=== PATIENT | male | born 1930 | race Caucasian/White ===

== ENCOUNTER 2017-01-05 02:20 | Inpatient (IN) ==
--- NOTE | 2016-12-30 10:42 | EKG Report ---
Test Performed on : 12/30/2016 10:32:29 AM Test Reason : surgery Blood Pressure : / mmHG Vent. Rate : 054 BPM Atrial Rate : 054 BPM P-R Int : 166 ms QRS Dur : 078 ms QT Int : 422 ms P-R-T Axes : 021 006 046 degrees QTc Int : 400 ms Sinus bradycardia. Otherwise normal ECG No previous ECGs available Confirmed by Debby Oates MD ([id number]) on 12/30/2016 1:08:07 PM
[2016-12-30 10:49] LABS: MANUAL DIFF NEEDED? NO; URINE MICRO REVIEW NEEDED? NO; URINE SOURCE CLEAN CATCH
[2016-12-30 10:52] LABS: BILIRUBIN URINE NEGATIVE (NEGATIVE); BLOOD URINE NEGATIVE (NEGATIVE); COLOR YELLOW; GLUCOSE URINE NEGATIVE (NEGATIVE); LEUKOCYTES URINE LARGE (NEGATIVE); NITRITE URINE NEGATIVE (NEGATIVE); PROTEIN URINE TRACE mg/dL (NEGATIVE); SP GRAVITY URINE 1.017; TURBIDITY URINE CLEAR (CLEAR); UR EPITHELIAL CELLS <10 /HPF (<10); URINE BACTERIA 1+ /HPF; URINE RBC <10 /HPF (<10); URINE WBC TNTC /HPF (<10); UROBILINOGEN URINE NORMAL (NORMAL)
[2016-12-30 10:54] LABS: BASO% 0.4 % (0.0-0.8); EOS# 0.19 X1000 (0.0-0.7); EOS% 3.6 % (0.0-10.0); HEMATOCRIT 41.1 % (42.0-52.0); HEMOGLOBIN 13.3 g/dL (14.0-18.0); LYMPH# 1.55 X1000 (1.2-3.4); LYMPH% 29.6 % (20.5-51.1); MCH 31.4 PG (27-31); MCHC 32.4 g/dL (33-37); MCV 96.9 FL (81-99); MONO# 0.45 X1000 (0.11-0.59); MONO% 8.6 % (1.7-9.3); MPV 10.2 FL (7.4-10.4); NEUT% 57.8 % (42.2-75.2); PLT 187 X1000 (130-400); RBC 4.24 XMIL (4.7-6.1)
[2016-12-30 11:03] LABS: INR 1.02; PROTIME 10.7 Seconds (9.2-11.7); PTT 26.3 Seconds (22.0-36.0)
[2016-12-30 11:43] LABS: AGAP 10; BUN 11 mg/dL (8-22); CALCIUM 9.4 mg/dL (8.8-10.2); CHLORIDE 105 mmol/L (98-107); COSMO 282; POTASSIUM 4.4 mmol/L (3.5-5.1); SODIUM 142 mmol/L (136-145); TCO2 27 mmol/L (25-35)
[2017-01-05] MEDS ORDERED: FENTANYL ONE (06:47)
[2017-01-05] MEDS ORDERED: DIPRIVAN 1% ONE (06:48)
[2017-01-05] MEDS ORDERED: DECADRON ONE (06:49)
[2017-01-05] MEDS ORDERED: ROBINUL ONE (06:49)
[2017-01-05] MEDS ORDERED: XYLOCAINE-MPF 2% ONE (06:49)
[2017-01-05] MEDS ORDERED: LR 1,000 ML ONE (07:05)
[2017-01-05] MEDS ORDERED: KEFZOL 2 GM/D5W 2 GM/50 ML IVPB ONE (07:08)
[2017-01-05] MEDS ORDERED: PEPCID ONE (07:08)
[2017-01-05] MEDS ORDERED: CELEBREX ONE (07:08)
[2017-01-05] MEDS ORDERED: REGLAN ONE (07:08)
[2017-01-05] MEDS ORDERED: LYRICA ONE (07:08)
[2017-01-05] MEDS ORDERED: COLACE ONE (07:08)
[2017-01-05] MEDS ORDERED: SENSORCAINE 0.25%/EPI 1:200,000 ONE (07:48)
[2017-01-05] MEDS ORDERED: DURAMORPH ONE (07:48)
[2017-01-05] MEDS ORDERED: VANCOMYCIN ONE (07:48)
[2017-01-05] MEDS ORDERED: TORADOL ONE (07:48)
[2017-01-05] MEDS ORDERED: CYKLOKAPRON 1,000 MG/NS 0 MG/0 ML IVPB ONE (07:49)
[2017-01-05] MEDS ORDERED: SODIUM CHLORIDE 0.9% ONE (07:49)
[2017-01-05] MEDS ORDERED: EXPAREL 1.3% ONE (07:50)
[2017-01-05] MEDS ORDERED: NEOSPORIN G.U. IRRIGANT ONE (07:50)
[2017-01-05] MEDS ORDERED: CYKLOKAPRON 1,000 MG/NS 1,000 MG/100 ML IVPB ONE (07:50)
[2017-01-05] MEDS ORDERED: VERSED ONE (08:39)
[2017-01-05 09:18] LABS: URINE MICRO REVIEW NEEDED? NO; URINE SOURCE CATH
[2017-01-05 09:23] LABS: BILIRUBIN URINE NEGATIVE (NEGATIVE); BLOOD URINE NEGATIVE (NEGATIVE); COLOR YELLOW; GLUCOSE URINE NEGATIVE (NEGATIVE); LEUKOCYTES URINE LARGE (NEGATIVE); NITRITE URINE NEGATIVE (NEGATIVE); PROTEIN URINE TRACE mg/dL (NEGATIVE); SP GRAVITY URINE 1.019; TURBIDITY URINE CLEAR (CLEAR); UROBILINOGEN URINE NORMAL (NORMAL)
[2017-01-05 09:24] LABS: UR EPITHELIAL CELLS <10 /HPF (<10); URINE BACTERIA NEGATIVE /HPF; URINE RBC <10 /HPF (<10)
[2017-01-05] MEDS ORDERED: NS 1,000 ML ONE (11:21)
[2017-01-05] MEDS ORDERED: ZOFRAN PO PRN (11:45)
[2017-01-05] MEDS ORDERED: MILK OF MAGNESIA PO PRN (11:45)
[2017-01-05] MEDS ORDERED: MORPHINE IV PRN (11:45)
[2017-01-05] MEDS: NS 1,000 ML IV SCH ×2 (12:14→22:12)
--- NOTE | 2017-01-05 12:44 | Diag Imaging Result Doc PS360 ---
EXAM: KNEE 1-2 VIEWS-RIGHT HISTORY: post op tka TECHNIQUE: Two views COMPARISON: None. FINDINGS: The patient has undergone recent orthopedic replacement of the knee. There are anterior skin kip and there is a superior surgical drain. No fracture. No dislocation. IMPRESSION: Good alignment to the femoral and tibial components following orthopedic replacement of the right knee. Electronically signed by Devan House 01/05/2017 12:42 PM
[2017-01-05] MEDS: KEFZOL 2 GM/D5W 2 GM/50 ML IVPB IV SCH (16:13)
[2017-01-05] MEDS: CENTRUM SILVER PO SCH (16:14)
[2017-01-05] MEDS: TYLENOL PO SCH ×2 (16:14→22:12)
[2017-01-05] MEDS: PROSCAR PO SCH (16:15)
--- NOTE | 2017-01-05 18:08 | OPERATIVE NOTE ---
PROCEDURE DATE: 01/05/2017 PREOPERATIVE DIAGNOSIS: Degenerative arthritis, right knee. POSTOPERATIVE DIAGNOSIS: Degenerative arthritis, right knee. PROCEDURE: Right total knee arthroplasty with DePuy Attune size 8 posterior stabilized femur, a size 8 tibial tray, 8 mm rotating platform tibial insert, and a 38 mm medialized anatomic patella. SURGEON: Wiliam Begum MD. INFORMATION SYSTEMS SECURITY ANALYST: GODFREY Hernandez 2ND BARK SCALER: Akhil Ahn RN. ANESTHESIA: Spinal. IV FLUIDS: 1100 mL lactated Ringer's. ESTIMATED BLOOD LOSS: 20 mL. TOURNIQUET TIME: 95 minutes at 350 mmHg. COMPLICATIONS: None. INDICATION: The patient is a pleasant 86-year-old male with a chronic history of worsening pain and discomfort in his right knee. Continued pain and discomfort despite appropriate nonoperative treatment. X-rays revealed degenerative arthritis. Recommendation to proceed with right total knee arthroplasty was offered. Risks and benefits of surgery were explained, including the risks of anesthesia, , bleeding, infection, failure to relieve pain, postop stiffness, nerve injury, blood clots and other imponderables. All questions were answered. The patient and family wished to proceed with surgery. DETAILS OF OPERATION: The patient was taken to the operating room and placed supine on the operating table. Once adequate anesthesia was obtained, the patient's right lower extremity was subsequently prepped and draped in usual sterile fashion. Esmarch was used to exsanguinate the right lower extremity. The tourniquet was inflated to 350 mmHg. A standard anterior incision was made with a skin knife. Medial and skin envelopes were developed. A standard medial parapatellar arthrotomy was then performed. Patella fat pad was excised. Retractors were then placed. Approximately 1 cm anterior to the PCL insertion, a starting reamer was passed. Intramedullary guide with a distal femoral cutting block was pinned into position. A distal femoral cut was then performed. A sizing block was made to size 8. Corresponding pins were placed. A size 8 cutting block was then placed. Anterior, posterior, and chamfer cuts were then made. Retractors were then placed in position. Attention then turned to the proximal tibia. The extramedullary guide was then used and the tibial cutting block was then pinned in position. Had good alignment confirmed with the alignment ben. The proximal tibia was then resected. A curved osteotome was used to remove the posterior osteophytes. Medial and lateral meniscus was excised. Spacer block was placed and had good soft tissue balancing with both flexion and extension. After this had been performed, a size 8 tibial tray appeared to be the correct size. Corresponding pins were placed and this was followed by a central reamer and a fin punch. A box cutting guide was then placed and distal femur box cut was performed. A trial tibial insert was then placed and 2 lug holes were drilled. Trial tibial insert was then placed and had good soft tissue balancing. Attention was then turned to the patella where it was everted and resected in standard fashion. 38 appeared to be correct size. Corresponding holes were drilled. Patellar insert was then placed and had good patellofemoral tracking. The components were then removed. Copious irrigation was then performed with antibiotic pulsatile lavage while vancomycin was mixed with cement on back table. Sequential cementing was then performed, first with the tibial tray and excess cement was removed with a [place]. This was followed by the femoral component and a trial tibial insert was then placed and axial loading and full extension was maintained while cement cured. Patella cemented in standard fashion. Patella clamp was placed. While the cement was curing, Exparel was placed in deep soft tissue, as well subcutaneous tissue. After cement had cured, a trial tibial insert 8 mm appeared to be correct tibial insert. This was then removed. Exparel was placed in deep posterior capsule. The wound was copiously irrigated with antibiotic pulsatile lavage. An 8 mm rotating platform tibial insert was then placed. Had good soft tissue balance and good range of motion. Good patellofemoral tracking. A 1/8 Hemovac drain was placed and was not sewn in. The wound was copiously irrigated once again with antibiotic pulsatile lavage. #1 Vicryl was then used to repair the arthrotomy, followed by 2-0 Vicryl to repair subcutaneous tissue and skin kip. Adaptic, sterile 4 x 4's, Webril, cryo unit, Domingo wrap applied to the right lower extremity. Patient tolerated the procedure well. No complications. He was transferred to the recovery room in stable condition. cc: Wiliam Begum MD
[2017-01-05] MEDS: COLACE PO SCH (22:12)
[2017-01-06] MEDS: KEFZOL 2 GM/D5W 2 GM/50 ML IVPB IV SCH (00:52)
[2017-01-06 06:04] LABS: CALCIUM 7.6 mg/dL (8.8-10.2); POTASSIUM 4.7 mmol/L (3.5-5.1)
[2017-01-06] MEDS: NS 1,000 ML IV SCH ×2 (06:22→16:28)
[2017-01-06] MEDS: XARELTO PO SCH (06:24)
[2017-01-06] MEDS: TYLENOL PO SCH ×4 (06:24→22:54)
[2017-01-06 08:40] LABS: HEMATOCRIT 30.9 % (42.0-52.0); HEMOGLOBIN 9.8 g/dL (14.0-18.0)
[2017-01-06] MEDS: PEPCID PO SCH (09:52)
[2017-01-06] MEDS: PERIDEX MT SCH ×2 (09:52→21:08)
[2017-01-06] MEDS: CENTRUM SILVER PO SCH (09:52)
[2017-01-06] MEDS: COLACE PO SCH ×2 (09:54→21:08)
[2017-01-06] MEDS: PROSCAR PO SCH (09:55)
--- NOTE | 2017-01-06 11:06 | PROGRESS NOTE ---
DATE: 01/06/2017 SUBJECTIVE: Patient is a pleasant, 86-year-old male who is 1 day status post right total knee arthroplasty. He is currently resting comfortably and has no complaints this morning. OBJECTIVE: Physical Examination: On physical exam, the patient's right lower extremity dressing is intact. Calf is soft. He is neurovascular intact distally. He has active dorsiflexion and plantarflexion. Laboratory Data: His hemoglobin and hematocrit are pending. IMPRESSION: Postoperative day #1, status post right total knee arthroplasty. PLANS: Change his dressing and discontinue his drain and Armijo. We will also Hep-Lock his IV. We will mobilize with physical therapy. assurance services manager health care have been consulted for discharge planning for inpatient rehabilitation. cc: Wiliam Begum MD
[2017-01-07] MEDS: TYLENOL PO SCH ×4 (02:52→17:35)
[2017-01-07] MEDS: NS 1,000 ML IV SCH ×3 (02:52→19:09)
[2017-01-07] MEDS: XARELTO PO SCH (05:17)
[2017-01-07 05:31] LABS: HEMATOCRIT 28.1 % (42.0-52.0); HEMOGLOBIN 9.1 g/dL (14.0-18.0)
[2017-01-07] MEDS: OXY IR PO PRN ×3 (05:55→20:49)
--- NOTE | 2017-01-07 08:16 | PROGRESS NOTE ---
DATE: 01/07/2017 SUBJECTIVE: The patient is an 86-year-old male who is 2 days status post right total knee arthroplasty. The patient rested well through the night and has no complaints this morning. OBJECTIVE: On physical exam, patient's right lower extremity wound looks good. There is no signs or symptoms of infection. He has active dorsiflexion and plantar flexion. His calf is soft. He is neurovascularly distally. LABORATORY DATA: His hemoglobin is 9.1, hematocrit is 28.1. IMPRESSIONS: 1. Postop day #1 status post right total knee arthroplasty. 2. Acute blood loss anemia, asymptomatic. PLAN: At this point, the patient will continue increasing his mobilization with physical therapy. We will plan on discharging to rehab tomorrow. cc: Wiliam Begum MD
--- NOTE | 2017-01-07 10:13 | DISCHARGE SUMMARY ---
ADMISSION DATE: 01/05/2017 DISCHARGE DATE: 01/07/2017 ADMITTING DIAGNOSIS: Degenerative osteoarthritis of the right knee. DISCHARGE DIAGNOSES: 1. Degenerative osteoarthritis of the right knee status post right total knee arthroplasty. 2. Acute blood loss anemia. BRIEF HISTORY: The patient is a pleasant 86-year-old male with a progressive history of pain and discomfort in his right knee. His pain has progressed to affect his activities of daily living. X-rays revealed degenerative osteoarthritis. Recommendation to proceed with right total knee arthroplasty was offered. Risks and benefits discussed and all questions answered. The patient and family wished to proceed with surgery. HOSPITAL COURSE AND TREATMENT: The patient was admitted to the hospital and underwent right total knee arthroplasty. He had an uneventful postoperative course. By postoperative day #2, his hemoglobin and hematocrit stabilized at hemoglobin of 9.1 and hematocrit of 28.1. He was asymptomatic. Prior to discharge, the patient is afebrile, tolerating a regular diet. Wound looked good. There were no signs or symptoms of infection. His pain was well controlled with p.o. medications. Patient was progressing with Physical Therapy. It was felt he would benefit from inpatient rehabilitation. The patient and the family were agreeable to this. DISCHARGE MEDICATIONS: 1. OxyIR 5 mg 1 p.o. q.4 hours p.r.n. pain. 2. Xarelto 10 mg p.o. daily x2 weeks. 3. For remaining medications, please see medication list. DISCHARGE INSTRUCTIONS: 1. The patient will be discharged for inpatient rehabilitation. 2. Consult physical therapy with full weightbearing, right lower extremity and range of motion and gait training per total knee protocol. 3. Discontinue kip in 11 days. 4. Follow up in the office in 3-4 weeks. cc: Wiliam Begum MD
[2017-01-07] MEDS: COLACE PO SCH ×2 (10:55→20:49)
[2017-01-07] MEDS: PEPCID PO SCH (10:55)
[2017-01-07] MEDS: PERIDEX MT SCH ×2 (10:55→20:49)
[2017-01-07] MEDS: PROSCAR PO SCH (10:55)
[2017-01-07] MEDS: CENTRUM SILVER PO SCH (10:55)
--- NOTE | 2017-01-07 10:57 | Diag Imaging Result Doc PS360 ---
EXAM: CHEST-1 VIEW HISTORY: rehab placement TECHNIQUE: Erect AP portable at 1045 COMMENT: The inspiration is suboptimal. There is platelike atelectasis over the left base. Otherwise has been no significant change since 02/26/2015. IMPRESSION: Left basilar atelectasis. Electronically signed by Jair Whitaker 01/07/2017 10:54 AM
[2017-01-08] MEDS: TYLENOL PO SCH ×2 (01:07→05:40)
[2017-01-08] MEDS: NS 1,000 ML IV SCH (01:08)
[2017-01-08 05:35] LABS: HEMATOCRIT 27.9 % (42.0-52.0)
[2017-01-08] MEDS: XARELTO PO SCH (05:40)
[2017-01-08 08:31] VITALS: BP 109/61
[2017-01-08] MEDS: PROSCAR PO SCH (09:13)
[2017-01-08] MEDS: PERIDEX MT SCH (09:13)
[2017-01-08] MEDS: COLACE PO SCH (09:14)
[2017-01-08] MEDS: CENTRUM SILVER PO SCH (09:14)
[2017-01-08] MEDS: PEPCID PO SCH (09:14)
--- NOTE | 2017-01-08 12:06 | PROGRESS NOTE ---
DATE: 01/08/2017 SUBJECTIVE: Solis Whittaker is an 86-year-old male who is postoperative day 3 from a right total knee arthroplasty that Dr. Begum did in Tuesday. He has no complaints. OBJECTIVE: He is a well-developed, well-nourished male. He is alert, oriented, and cooperative with exam. His leg is neurovascularly intact. His wound is clean, dry, and intact, without sign of infection. His leg is stable to exam. IMPRESSION: Stable right total hip arthroplasty. PLAN: He will be transferred to rehabilitation today. They can remove his kip. He will return to see Dr. Begum as an outpatient. cc: MD Wiliam Parmar MD
== END 2017-01-08 13:47 ==
LOC: SURHOLD 02:20 → 4N 09:16
PROVIDERS: ADMIT Orthopaedic Surgery Adult Reconstructive Orthopaedic Surgery; ATTEND Orthopaedic Surgery Adult Reconstructive Orthopaedic Surgery